=== PATIENT | male | born 1955 | race Caucasian/White ===

== ENCOUNTER 2016-10-05 13:14 | Emergency (ER) | payer BC, OTHER ==
[~2016-10-05] VITALS: Ht 172.7 cm; Wt 91.0 kg
[2016-10-05] MEDS ORDERED: EPIN0.3I6 (13:26)
[2016-10-05] MEDS ORDERED: LISI20TA (13:26)
[2016-10-05] MEDS ORDERED: CIAL20TA (13:26)
[2016-10-05] MEDS ORDERED: VITA100067 PO (13:27)
[2016-10-05] MEDS ORDERED: FAMOTIDINE IV BAG 20 MG in APPROPRIATE DILUENT 1 EA IV ONE (13:45)
[2016-10-05] MEDS ORDERED: methylPREDNISolone INJ 125 MG/2 ML VIAL (J2930) IV ONE (13:45)
[2016-10-05] MEDS ORDERED: EPINEPHrine INJ 1 MG/ML 1ML AMP IM STA (13:51)
[2016-10-05 14:21] LABS: BASO # 0.1 K/mm3 (0.0-0.2); BASO % 0.9 % (0.0-1.0); EOS # 0.2 K/mm3 (0.0-0.50); EOS % 1.4 % (0.0-3.0); LARGE UNSTAINED CELL # 0.2 K/mm3 (0.0-0.4); LYMPH # 2.3 K/mm3 (1.5-4.5); LYMPH % 21.6 % (24.0-44.0); MEAN CORPUSCULAR HEMOGLOBIN 35.3 pg (27.0-33.0); MEAN CORPUSCULAR HGB CONC 34.6 g/dl (32.0-36.5); MEAN CORPUSCULAR VOLUME 101.9 fl (80.0-96.0); MONO # 0.6 K/mm3 (0.0-0.8); MONO % 5.2 % (0.0-5.0); NEUTROPHILS # 7.5 K/mm3 (1.8-7.7); PLATELET COUNT, AUTOMATED 423 k/mm3 (150-450); RED CELL DISTRIBUTION WIDTH 11.9 % (11.5-14.5); WHITE BLOOD COUNT 10.8 K/mm3 (4.0-10.0)
[2016-10-05 14:31] LABS: CALCIUM LEVEL 9.5 MG/DL (8.8-10.2); CREATININE FOR GFR 2.14 MG/DL (0.70-1.30); GLOMERULAR FILTRATION RATE 33.7 (>49); POTASSIUM SERUM 4.6 MEQ/L (3.5-5.1)
[2016-10-05] MEDS ORDERED: PRED10TA2 PO (18:33)
[2016-10-05] MEDS ORDERED: BENA25CA4 PO (18:33)
[2016-10-05 18:53] VITALS: BP 167/88
== END 2016-10-05 18:55 | disposition home or self-care (01) ==
LOC: M ED 13:14
DX: T78.3XXA Angioneurotic edema, initial encounter (principal); Z87.891 Personal history of nicotine dependence; W57.XXXA Bitten or stung by nonvenomous insect and other nonvenomous arthropods, initial encounter; Y92.89 Other specified places as the place of occurrence of the external cause; Y93.89 Activity, other specified; Y99.0 Civilian activity done for income or pay
CPT/HCPCS: 36430; 80048; 85025; 86850; 86900; 86901; 86927; 93041; 96372; 96374; 96375; 99285; J2930; P9017

== ENCOUNTER → 2016-12-22 | Outpatient (REF) | payer OTHER, BC ==
[~2016-12-22] MED LIST: BENA25CA4 PO; CIAL20TA; EPIN0.3I6; LISI20TA; PRED10TA2 PO; VITA100067 PO
== END ==
LOC: M LAB REF 13:24
PROVIDERS: ATTEND Emergency Medicine
DX: Z11.3 Encounter for screening for infections with a predominantly sexual mode of transmission (principal)

== ENCOUNTER → 2019-01-24 | Outpatient (REF) | payer OTHER ==
[~2019-01-24] MED LIST changes: +EPIN0.3I11; -EPIN0.3I6; -LISI20TA; +LISI20TA19
== END ==
LOC: M SFHCPLAZ 13:02
PROVIDERS: ATTEND Dermatology
DX: L81.4 Other melanin hyperpigmentation (principal)

== ENCOUNTER 2019-03-16 09:29 | Day surgery (SDC) | payer BC, OTHER ==
[~2019-03-16] VITALS: Ht 172.7 cm; Wt 86.5 kg
[~2019-03-16 09:29] MED LIST changes: +AMLO10TA5 PO; +CHLO25TA PO; +D3 H2000 PO; +LIDOCAINE 2% INJ 100 MG/5 ML SDV (FOR ANES.) As Ordered ONE; +PROPOFOL 200 MG/20 ML VIAL As Ordered ONE
[2019-03-16] MEDS ORDERED: NS 1,000 ML IV ONE (10:00)
[2019-03-16] MEDS ORDERED: PROPOFOL 200 MG/20 ML VIAL As Ordered ONE (10:43)
--- NOTE | 2019-03-16 10:54 | ROOR ---
Patient Name: Jean Perez Procedure Date: 03/16/2019 10:32 AM Date of : 1955 Age: 63 Room: [facility] Gender: Male Note Status: Finalized Procedure: Colonoscopy Indications: High risk colon cancer surveillance: Personal history of colonic polyps, Last colonoscopy: December 2013 Providers: Romeo VELASCO MD Referring MD: DEVON Loja Requesting Provider: Medicines: Monitored Anesthesia Care Complications: No immediate complications. Procedure: Pre-Anesthesia Assessment: - The heart rate, respiratory rate, oxygen saturations, blood pressure, adequacy of pulmonary ventilation, and response to care were monitored throughout the procedure. The Colonoscope was introduced through the anus and advanced to the terminal ileum, with identification of the appendiceal orifice and IC valve. The colonoscopy was performed without difficulty. The patient tolerated the procedure well. The quality of the bowel preparation was good. Findings: The perianal and digital rectal examinations were normal. Two sessile polyps were found in the sigmoid colon. The polyps were 5 to 7 mm in size. These polyps were removed with a hot snare. Resection and retrieval were complete. Two sessile polyps were found in the hepatic flexure and ascending colon. The polyps were 5 to 7 mm in size. These polyps were removed with a hot snare. Resection and retrieval were complete. Multiple medium-mouthed diverticula were found in the sigmoid colon. Internal hemorrhoids were found during retroflexion. The hemorrhoids were moderate. Impression: - Two 5 to 7 mm polyps in the sigmoid colon, removed with a hot snare. Resected and retrieved. - Two 5 to 7 mm polyps at the hepatic flexure and in the ascending colon, removed with a hot snare. Resected and retrieved. - Diverticulosis in the sigmoid colon. - Internal hemorrhoids. - The examination was otherwise normal. Recommendation: - Repeat colonoscopy in 3 years for surveillance. - No ibuprofen, naproxen, or other non-steroidal anti-inflammatory drugs for 10 days after polyp removal. Romeo Velasco MD Romeo VELASCO MD 03/16/2019 10:54:47 AM Electronically signed by Romeo VELASCO MD Number of Addenda: 0 Note Initiated On: 03/16/2019 10:32 AM Estimated Blood Loss: Estimated blood loss: none.
[2019-03-16 11:10] VITALS: BP 164/90
== END 2019-03-16 19:34 | disposition home or self-care (01) ==
LOC: M OPP 09:29
PROVIDERS: ATTEND Internal Medicine Gastroenterology
DX: Z12.11 Encounter for screening for malignant neoplasm of colon (principal); Z86.010 Personal history of colon polyps; D12.5 Benign neoplasm of sigmoid colon; D12.3 Benign neoplasm of transverse colon; D12.2 Benign neoplasm of ascending colon; K64.8 Other hemorrhoids; K57.30 Diverticulosis of large intestine without perforation or abscess without bleeding; F17.210 Nicotine dependence, cigarettes, uncomplicated; Z79.899 Other long term (current) drug therapy; Z88.8 Allergy status to other drugs, medicaments and biological substances; Z91.030 Bee allergy status

== ENCOUNTER 2020-10-16 20:00 | Emergency (ER) | payer BC, OTHER ==
[~2020-10-16] VITALS: Ht 172.7 cm; Wt 82.1 kg
[~2020-10-16 20:00] MED LIST changes: -AMLO10TA5 PO; +AMLO1TAB25 PO; -LIDOCAINE 2% INJ 100 MG/5 ML SDV (FOR ANES.) As Ordered ONE; -LISI20TA19; +LISI20TA35; -PROPOFOL 200 MG/20 ML VIAL As Ordered ONE
[2020-10-16] MEDS ORDERED: IBUP200C28 PO (20:08)
[2020-10-16] MEDS ORDERED: predniSONE 20 MG TAB PO ONE (21:10)
[2020-10-16] MEDS ORDERED: FAMOTIDINE 20 MG TAB PO ONE (21:10)
[2020-10-16] MEDS ORDERED: diphenhydrAMINE 50MG CAP PO ONE (21:10)
[2020-10-16] MEDS ORDERED: PEPC1TAB5 PO (21:22)
[2020-10-16] MEDS ORDERED: BENA25CA4 PO (21:22)
[2020-10-16] MEDS ORDERED: PRED20TA PO (21:22)
[2020-10-16 21:37] VITALS: BP 156/59
== END 2020-10-16 21:40 | disposition home or self-care (01) ==
LOC: M ED 20:00
DX: L50.9 Urticaria, unspecified (principal); T78.49XA Other allergy, initial encounter; W57.XXXA Bitten or stung by nonvenomous insect and other nonvenomous arthropods, initial encounter; Y92.89 Other specified places as the place of occurrence of the external cause; I10 Essential (primary) hypertension; Z79.899 Other long term (current) drug therapy; Z91.030 Bee allergy status; F17.210 Nicotine dependence, cigarettes, uncomplicated
CPT/HCPCS: 99283; J7512

== ENCOUNTER → 2021-06-27 | Outpatient (CLI) | payer MEDICARE, BC, OTHER ==
[~2021-06-27] MED LIST changes: +IBUP200C28 PO; +PEPC1TAB5 PO; +PRED20TA PO
== END ==
LOC: M RAD 12:33
PROVIDERS: ATTEND Nurse Practitioner Family
DX: Z12.2 Encounter for screening for malignant neoplasm of respiratory organs (principal); F17.210 Nicotine dependence, cigarettes, uncomplicated

== ENCOUNTER → 2022-04-30 | Outpatient (CLI) | payer MEDICARE, BC, OTHER ==
[~2022-04-30] MED LIST changes: +VITA100093 PO
== END ==
LOC: M LABSMTC 10:27
PROVIDERS: ATTEND Anesthesiology
DX: Z01.818 Encounter for other preprocedural examination (principal)

== ENCOUNTER → 2022-06-01 | Outpatient (CLI) | payer MEDICARE, BC, OTHER ==
[~2022-06-01] MED LIST changes: -EPIN0.3I11; +EPIN0.3I11 INJ
== END ==
LOC: M LABSMTC 11:30
PROVIDERS: ATTEND Anesthesiology
DX: Z01.812 Encounter for preprocedural laboratory examination (principal)

== ENCOUNTER 2022-06-04 08:59 | Day surgery (SDC) | payer MEDICARE, BC, OTHER ==
[~2022-06-04] VITALS: Ht 171.4 cm; Wt 80.7 kg
[~2022-06-04 08:59] MED LIST changes: +NS 1,000 ML IV ONE
[2022-06-04 10:40] VITALS: BP 110/61
[2022-06-04] MEDS ORDERED: propofoL 200 MG/20 ML VIAL As Ordered ONE (11:05)
[2022-06-04] MEDS ORDERED: LIDOCAINE 2% 100MG/5ML SDV (FOR ANES.) As Ordered ONE (11:05)
== END 2022-06-04 10:46 | disposition home or self-care (01) ==
LOC: M OPP 08:59
PROVIDERS: ATTEND Internal Medicine Gastroenterology
DX: Z12.11 Encounter for screening for malignant neoplasm of colon (principal); Z86.010 Personal history of colon polyps; K63.5 Polyp of colon; K64.8 Other hemorrhoids; K57.30 Diverticulosis of large intestine without perforation or abscess without bleeding; I10 Essential (primary) hypertension; F17.290 Nicotine dependence, other tobacco product, uncomplicated; Z79.899 Other long term (current) drug therapy; Z88.8 Allergy status to other drugs, medicaments and biological substances; Z91.030 Bee allergy status

== ENCOUNTER → 2022-07-06 | Outpatient (CLI) | payer MEDICARE, BC, OTHER ==
[~2022-07-06] MED LIST changes: -NS 1,000 ML IV ONE
== END ==
LOC: M RAD 09:41
PROVIDERS: ATTEND Nurse Practitioner Family
DX: Z12.2 Encounter for screening for malignant neoplasm of respiratory organs (principal); F17.210 Nicotine dependence, cigarettes, uncomplicated

== ENCOUNTER → 2023-08-17 | Outpatient (CLI) | payer MEDICARE, BC | LOC: M RAD 10:40 | PROVIDERS: ATTEND Nurse Practitioner Family | DX: Z12.2 Encounter for screening for malignant neoplasm of respiratory organs (principal); F17.210 Nicotine dependence, cigarettes, uncomplicated ==